=== PATIENT | female | born 1955 | race Caucasian/White ===

== ENCOUNTER 2019-03-06 12:25 | Inpatient (IN) ==
[2019-03-06 13:33] LABS: BASO# 0.01 X1000 (0.0-0.2); HEMATOCRIT 48.3 % (37.0-47.0); HEMOGLOBIN 15.5 g/dL (12.0-16.0); IMM GRAN# 0.09 X1000 (0.0-0.04); IMM GRAN% 0.3 % (0.0-0.5); LYMPH# 1.21 X1000 (1.2-3.4); LYMPH% 4.5 % (20.5-51.1); MCH 26.2 PG (27-31); MCHC 32.1 g/dL (33-37); MCV 81.6 FL (81-99); MONO# 1.94 X1000 (0.11-0.59); MONO% 7.2 % (1.7-9.3); MPV 11.3 FL (7.4-10.4); NEUT# 23.85 X1000 (1.4-6.5); PLT 291 X1000 (130-400); RBC 5.92 XMIL (4.2-5.4)
[2019-03-06] MEDS ORDERED: ZOFRAN IV ONE (14:05)
[2019-03-06] MEDS ORDERED: NS 1,000 ML IV ONE ×3 (14:05→20:42)
[2019-03-06 14:27] LABS: ALB/GLOB RATIO 1.1; ALBUMIN 4.3 g/dL (3.5-5.0); CALCIUM 10.4 mg/dL (8.8-10.2); CREATININE 1.2 mg/dL (0.5-0.9); POTASSIUM 4.1 mmol/L (3.5-5.1); TOTAL BILIRUBIN 0.85 mg/dL (0.20-1.00); TOTAL PROTEIN 8.2 g/dL (6.3-8.3)
--- NOTE | 2019-03-06 14:33 | PROVIDER DOCUMENTATION ---
HPI-Abdominal Pain/GI Problem - General Chief Complaint: Nausea/Vomiting Stated Complaint: VOMITING Time Seen by Provider: 03/06/19 13:23 Source: patient - History of Present Illness-ABD Nature of Presenting Problems: 63 yr old F, presenting with nausea, vomiting, epigastric abdominal pain that started Sunday. She attributed her initial stomach upset to some she had eaten, but Sunday morning began throwing up, and has not been able to keep anything down since then. She states her last bowel movement was Sunday; her abdominal pain is alternating crampy and sharp, epigastric, non-radiating. She reports subjective fevers and chills. The pt denies any recent abdominal procedures; has had her uterus and gallbladder removed several years ago. Abdominal Pain Onset Location: reports: epigastric Pain Radiation: reports: no radiation Quality of Pain: reports: sharp Severity in ED: reports: moderate Onset/Duration: reports: other (Sunday) Timing: reports: still present Activities at Onset: reports: none Exposure to sick contacts?: No Associated Symptoms: reports: nausea, vomiting Last BM: 2 days ago Dark Stools Present?: reports: none noticed # of Vomiting Episodes: 6 Emesis Description: reports: clear Similar Symptoms Previously?: No Review of Systems - Adult - REVIEW OF SYSTEMS - ADULT Constitutional: reports: see HPI, chills (subjective), fever (subjective) Eyes: reports: no symptoms reported Ears, Nose, Mouth & Throat: reports: no symptoms reported Cardiovascular: reports: no symptoms reported Respiratory: reports: no symptoms reported Gastrointestinal: reports: see HPI Genitourinary: reports: no symptoms reported Musculoskeletal: reports: no symptoms reported Integumentary: reports: no symptoms reported Neurological: reports: no symptoms reported Psychiatric: reports: no symptoms reported Endocrine: reports: no symptoms reported Past History - Adult - PAST MEDICAL HISTORY-ADULT Review of Records: reports: Nursing Assessment Review Cardiovascular: reports: HTN - PRIOR SURGERIES/PROCEDURES Surgical/Procedure History: reports: cholecystectomy, hysterectomy - FAMILY HISTORY Family History: reviewed, not pertinent - SOCIAL HISTORY Smoking: denies Living Situation: family Physical Exam-General - CONSTITUTIONAL General Appearance: alert, mild distress - EYES Eyes: PERRL/EOMI - HEAD, EARS, NOSE, MOUTH & THROAT HENMT: normocephalic/atraumatic, moist mucous membranes - RESPIRATORY Respiratory: chest non-tender, lungs clear, normal breath sounds - CARDIOVASCULAR Cardiovascular: regular rate, rhythm - GASTROINTESTINAL (ABDOMEN) Abdominal Exam: normal bowel sounds, soft, tenderness. negative: guarding - MUSCULOSKELETAL Extremity: no pedal edema, no calf tenderness - SKIN Integumentary: normal color, normal turgor, warm/dry - NEUROLOGIC Neurologic: no motor/sensory deficits - PSYCHIATRIC Psych/Mental Status: normal mood/affect, oriented x 3 Progress - PLAN OF CARE/RESULTS Progress/Plan/Lab Results: Vital Signs - 8 hr 03/06/19 13:10 Temperature 97.9 F Pulse Rate 72 Respiratory Rate 18 Blood Pressure 166/80 O2 Sat by Pulse Oximetry 99 Laboratory Results - last 24 hr 03/06/19 03/06/19 13:20 13:20 WBC 27.10 H RBC 5.92 H Hgb 15.5 Hct 48.3 H MCV 81.6 MCH 26.2 L MCHC 32.1 L RDW Std Deviation 15.0 H Plt Count 291 MPV 11.3 H Immature Gran % (Auto) 0.3 Neut % (Auto) 88.0 H Lymph % (Auto) 4.5 L [place]ois % (Auto) 7.2 Eos % (Auto) 0.0 Baso % (Auto) 0.0 Immature Gran # (Auto) 0.09 H Neut # (Auto) 23.85 H Lymph # (Auto) 1.21 [place]quois # (Auto) 1.94 H Eos # (Auto) 0.00 Baso # (Auto) 0.01 Sodium 130 L Potassium 4.1 Chloride 91 L Carbon Dioxide 25 Anion Gap 14 BUN 18 Creatinine 1.2 H Estimated GFR/1.73 m2 46 BUN/Creatinine Ratio 15 Glucose 127 H Calculated Osmolality 264 Calcium 10.4 H Total Bilirubin 0.85 AST 21 ALT 17 Alkaline Phosphatase 103 Total Protein 8.2 Albumin 4.3 Globulin 3.9 Albumin/Globulin Ratio 1.1 Lipase 47 Orders Category Date Time Status NPO Diet 03/06/19 13:[address] ABD/PELVIS W/IV CONT ONLY [CT] Stat Exams 03/06/19 14:04 Ordered CBC WITH DIFF [HEME] Stat Lab 03/06/19 13:20 Completed COMPREHENSIVE METABOLIC PANEL [CHEM] Stat Lab 03/06/19 13:20 Completed LIPASE [CHEM] Stat Lab 03/06/19 13:20 Completed URINALYSIS W/POSS RFLX CULT [URINALYSIS] Stat Lab 03/06/19 14:29 Uncollected 0.9% Sodium Chloride Inj [Ns] 1,000 ml Med 03/06/19 14:05 Active IV 999 mls/hr Ondansetron [Zofran] Med 03/06/19 14:05 Discontinued 8 mg IV NOW ONE Abd Pain/OB <20 weeks Stat Oth 03/06/19 13:14 Ordered Result Diagrams: 03/06/19 13:20 03/06/19 13:20 - REASSESSMENT Reassessment #1 Time Reassessed: 16:00 (CT Abdomen shows mild pancreatitis and duodenitis; case discussed with hospitalist; pt will be accepted for admission; pt made aware of plan) - CT/MRI 1 CT Study: Abdomen Impression: See EMR Report CT Results: pancreatitis, duodenitis - CONSULTS/PCP/HOSPITALIST Notification #1 *Consult/PCP/Hospitalist*: L[place] for Dr. Menendez Time Discussed: 16:15 Consult Disposition: Admit Departure - Departure Date of Disposition Decision: 03/06/19 Time of Disposition Decision: 16:14 DIAGNOSIS: Pancreatitis Qualifiers: Chronicity: acute Pancreatitis type: other Acute pancreatitis complication: unspecified Qualified Code(s): K85.80 - Other acute pancreatitis without necrosis or infection Disposition: ADMITTED INPATIENT 09 Certified Medical Emergency: Emergent Condition: Fair Referrals and Follow-Ups: Latoya Medina [Primary Care Provider] - - Critical Care Note This patient required my direct & personal management of CC.: No Attestation - Physician/ DUDLEY Attestation Patient care was provided by Advanced Practice Provider:: No The physician spent face to face time with patient:: Yes Advanced Practice Provider documentation review:: Supervising physician onsite and consulted in the evaluation and care of this patient. The physician did have a face to face encounter with the patient.
[2019-03-06] MEDS ORDERED: BENTYL IM ONE (15:00)
[2019-03-06 15:46] LABS: URINE SOURCE CLEAN CATCH
[2019-03-06 15:56] LABS: BILIRUBIN URINE NEGATIVE (NEGATIVE); BLOOD URINE SMALL (NEGATIVE); COLOR ORANGE; GLUCOSE URINE NEGATIVE (NEGATIVE); KETONE URINE 60 mg/dL (NEGATIVE); LEUKOCYTES URINE NEGATIVE (NEGATIVE); NITRITE URINE NEGATIVE (NEGATIVE); PROTEIN URINE 100 mg/dL (NEGATIVE); SP GRAVITY URINE 1.039; TURBIDITY URINE TURBID (CLEAR); UROBILINOGEN URINE NORMAL (NORMAL)
[2019-03-06 15:58] LABS: UR EPITHELIAL CELLS >10 /HPF (<10); URINE BACTERIA 3+ /HPF; URINE RBC <10 /HPF (<10); URINE WBC <10 /HPF (<10)
--- NOTE | 2019-03-06 16:08 | Diag Imaging Result Doc PS360 ---
EXAM: CT ABD/PELVIS W/IV CONT ONLY - 03/06/2019 HISTORY: abdominal pain, nausea, vomiting TECHNIQUE: CT abdomen/pelvis with intravenous contrast COMPARISON: None. FINDINGS: The visualized lung bases appear clear except for slight dependent atelectasis. There are no substantial abnormalities of the liver, spleen, or adrenal glands identified. The gallbladder surgically absent. There are atrophic changes of the pancreas. There are mild inflammatory changes at the pancreatic head. There are some retained fluid in the duodenum, duodenal wall does not appear grossly thickened. Findings suggest mild acute pancreatitis. There is no discrete necrosis or pseudocyst identified. There is no extraluminal gas collection to suggest perforated ulcer. The bilateral kidneys enhance homogeneously. There is no hydronephrosis. There is no evidence of bowel obstruction. The appendix is unremarkable. There is no substantial bowel wall thickening identified. There is no free air or abscess identified. IMPRESSION: Findings which are suggestive of relatively mild acute pancreatitis. There is some retained fluid in the duodenal, and secondary duodenitis cannot be excluded. There is no evidence of perforated ulcer. IMPRESSION: This exam was performed using automated exposure control, adjustment of mA or kV according to patient size, and/or use of iterative reconstruction technique. Electronically signed by Lavon Corona 03/06/2019 4:05 PM
[2019-03-06] MEDS: ZOFRAN IV PRN ×2 (18:29→23:58)
[2019-03-06] MEDS: MORPHINE IV PRN (18:55)
[2019-03-06] MEDS: ZOSYN 3.375 GM in NS 50 ML IV SCH (19:19)
[2019-03-06] MEDS: PROTONIX IV SCH (19:21)
[2019-03-06] MEDS: NS 1,000 ML IV SCH (19:22)
--- NOTE | 2019-03-06 20:10 | HISTORY AND PHYSICAL ---
PRIMARY CARE PHYSICIAN: Latoya Medina MD, in [place]. CHIEF COMPLAINT: Nausea, vomiting and epigastric abdominal pain, that began Sunday and progressively worsened. HISTORY OF PRESENTING ILLNESS: This is a 63-year-old female who presents to [facility] with complaints of nausea, vomiting and epigastric abdominal pain that began Sunday and has progressively worsened. States her last bowel movement was Sunday. Workup in the emergency room showed a white blood cell count of 27.10. Sodium was 130, creatinine was 1.2. Her amylase and lipase were both normal, but we did a CT of the abdomen and pelvis that showed an impression of findings suggestive of relatively mild acute pancreatitis; some retained fluid in the duodenum and secondary duodenitis could not be excluded. She will be admitted for further evaluation and treatment. PAST MEDICAL HISTORY: None. PAST SURGICAL HISTORY: Cholecystectomy and hysterectomy. FAMILY HISTORY: Reviewed and noncontributory. SOCIAL HISTORY: She currently lives with family denied any tobacco, alcohol or illicit drug use. ALLERGIES: No known drug allergies. HOME MEDICATIONS: She does not take any medications on a routine basis. LABORATORY DATA: Showed a white blood cell count of 27.10, hemoglobin 15.5, hematocrit 48.3, platelets 291,000. Sodium 130, potassium 4.1, chloride 91, CO2 is 25, BUN of 18, creatinine 1.2, glucose 127, amylase 95, lipase 47. Urinalysis was negative except for 3+ bacteria. DIAGNOSTIC DATA: CT of the abdomen and pelvis showed an impression of findings which are suggestive of relatively mild acute pancreatitis. Some retained fluid in the duodenum and secondary duodenitis could not be excluded. There is no evidence of a perforated ulcer. REVIEW OF SYSTEMS: She denied any fever, chills, blurred vision, dizziness, chest pain, coughing or shortness of breath. She has had epigastric abdominal pain, nausea and vomiting. Denied any constipation, diarrhea or burning or hurting with urination. PHYSICAL EXAMINATION: VITAL SIGNS: On arrival she had a temperature of 97.9 degrees, pulse 72, respirations 18, blood pressure 166/80, saturating 99% on room air. GENERAL: This is a 63-year-old female who is lying in the bed and answers questions appropriately. HEENT: Normocephalic, atraumatic. Normal ENT inspection. Oropharynx and nares are clear. Eyes: Pupils are equal, round and reactive to light and accommodation. Extraocular movements are intact. NECK: Normal inspection. Normal range of motion. LUNGS: Clear to auscultation bilaterally with equal lung expansion and chest wall movement. HEART: Regular rate and rhythm. No murmurs, rubs or gallops. ABDOMEN: Soft. There is some tenderness to the epigastric area to palpation. Bowel sounds are present x4 quadrants. MUSCULOSKELETAL: She had 5/5 strength x4 extremities. NEUROLOGICAL: The cranial nerves 2-12 appear grossly intact. ASSESSMENT: 1. Epigastric abdominal pain. 2. Nausea and vomiting. 3. Acute pancreatitis. 4. Leukocytosis. 5. Mild dehydration. PLAN: She will be admitted to the medical unit, held n.p.o. but I will let her have some ice chips just sparingly. She will be on telemetry. We will apply SCDs for DVT prophylaxis. Give her morphine 2 mg IV q.3 hours p.r.n., Zofran 4 mg IV q.4 hours p.r.n., normal saline at 125 mL/h. Recheck a CBC and BMP in the a.m. Further orders after seen by attending. Dictated by ASHLEY Abreu for Ran Sanchez MD cc: ASHLEY Abreu MD
[2019-03-06] MEDS ORDERED: NS 500 ML IV ONE (20:42)
--- NOTE | 2019-03-06 20:42 | HISTORY AND PHYSICAL ---
ADDENDUM: The patient seen and examined by me [id number]. All the laboratory, vital signs and images were reviewed. The patient presented to the emergency department with a chief complaint of abdominal pain, and she started actually having more pain and vomiting since yesterday at 5 a.m., and she has not been able to keep anything down since then. Her last bowel movement was normal and was 2 days ago on Sunday. As per the patient she also ate a food with a lot of condiments, especially pepper last Sunday and she was told not to eat that kind of food because her gallbladder has been removed and that can cause some damage, in the emergency department. They did a CT scan of the abdomen that showed a probably mild acute pancreatitis, some retained fluid in the duodenum and secondary duodenitis cannot be excluded, but the laboratory did not show any increase on her amylase or lipase. Her abdomen is actually benign. Some pain at the level of the periumbilical area, right flank and left upper quadrant. No signs of peritoneal irritation. The abdomen actually is protuberant, but as per the patient, it has been always that way. Laboratory showed also some hyponatremia with hypochloremia, elevated creatinine at 1.2. On my physical exam, she seems to be a little bit dehydrated. We will give her IV fluids. I will put her back on Protonix since she is taking some at home, and she has a history of GERD. I do believe this can be of some kind of viral infection and/or bacterial infection, but I do not believe she has pancreatitis. I will repeat, though, her lipase level tomorrow as well. For now, I will monitor. The problem is that her white blood cell count is really elevated at 27.1. Like I mentioned before, she had some chills and subjective fevers. The neutrophil count is 88%. DIAGNOSES: 1. Viral versus bacterial gastroenteritis. I will continue with IV fluids, and I will continue with antibiotics for now. Her white blood cell count is elevated at 27.1. We will monitor this closely. I will repeat the lab work in the morning. 2. CT scan that showed the possibility of duodenitis. We will continue to monitor. Her abdomen is not that tender, and she is not having any nausea at this moment. We will monitor. I will put this patient n.p.o. to give her some bowel rest for now. 3. Mild pancreatitis by CT scan. I do not think this patient has pancreatitis, but I will repeat the lipase and amylase for now. 4. Gastrointestinal reflux disease. Continue with PPIs. 5. This patient is also using some hormonal replacement with Estradiol. 6. Obesity with a body mass index of 33.7, aware. 7. Deep venous thrombosis prophylaxis with Lovenox. I agree with the rest of the nurse practitioner's assessment and plan, but I do not think she has pancreatitis. cc: Ran Sanchez MD
--- NOTE | 2019-03-06 21:26 | Diag Imaging Result Doc PS360 ---
CHEST-1 VIEW - 03/06/2019 INDICATION: sepsis protocol COMPARISON: None FINDINGS: The lungs are normally expanded and clear. Heart size and mediastinal contours are normal. No pneumothorax or pleural effusion. IMPRESSION: Negative exam. Electronically signed by Victor Hugo Waller 03/06/2019 9:23 PM
[2019-03-06 22:36] LABS: INR 1.15; PROTIME 14.9 Seconds (11.0-16.0)
[2019-03-06 22:37] LABS: PTT 35.1 Seconds (22.3-41.8)
[2019-03-06 23:02] LABS: ALB/GLOB RATIO 1.5; ALBUMIN 3.6 g/dL (3.5-5.0); CREATININE 1.1 mg/dL (0.5-0.9); POTASSIUM 4.1 mmol/L (3.5-5.1); TOTAL BILIRUBIN 0.88 mg/dL (0.20-1.00)
[2019-03-06 23:03] LABS: BASO# 0.01 X1000 (0.0-0.2); HEMATOCRIT 42.5 % (37.0-47.0); HEMOGLOBIN 13.6 g/dL (12.0-16.0); IMM GRAN# 0.07 X1000 (0.0-0.04); IMM GRAN% 0.3 % (0.0-0.5); LYMPH# 1.49 X1000 (1.2-3.4); LYMPH% 6.3 % (20.5-51.1); MCH 26.5 PG (27-31); MCV 82.8 FL (81-99); MONO# 2.09 X1000 (0.11-0.59); MONO% 8.8 % (1.7-9.3); MPV 11.2 FL (7.4-10.4); NEUT# 20.02 X1000 (1.4-6.5); NEUT% 84.6 % (42.2-75.2); PLT 235 X1000 (130-400); RBC 5.13 XMIL (4.2-5.4); RDW 14.9 % (11.5-14.5); WBC 23.68 X1000 (4.8-10.8)
[2019-03-06 23:15] LABS: LYMPHS 6 % (21-51); MONO 3 % (1-9); SEGS 91 % (42-75)
[2019-03-06 23:16] LABS: CALCIUM 8.7 mg/dL (8.8-10.2)
[2019-03-07] MEDS: ZOSYN 3.375 GM in NS 50 ML IV SCH ×4 (00:31→18:05)
[2019-03-07] MEDS: MORPHINE IV PRN ×3 (00:32→09:59)
[2019-03-07 03:49] LABS: BASO# 0.01 X1000 (0.0-0.2); EOS# 0.04 X1000 (0.0-0.7); EOS% 0.2 % (0.0-10.0); HEMATOCRIT 39.8 % (37.0-47.0); HEMOGLOBIN 12.9 g/dL (12.0-16.0); IMM GRAN# 0.06 X1000 (0.0-0.04); IMM GRAN% 0.3 % (0.0-0.5); LYMPH# 1.53 X1000 (1.2-3.4); LYMPH% 7.6 % (20.5-51.1); MCH 26.8 PG (27-31); MCHC 32.4 g/dL (33-37); MCV 82.7 FL (81-99); MONO# 1.39 X1000 (0.11-0.59); MONO% 6.9 % (1.7-9.3); MPV 11.1 FL (7.4-10.4); NEUT# 17.08 X1000 (1.4-6.5); PLT 224 X1000 (130-400); RBC 4.81 XMIL (4.2-5.4); RDW 14.9 % (11.5-14.5); WBC 20.11 X1000 (4.8-10.8)
[2019-03-07 04:03] LABS: AMYLASE 46 U/L (20-200); LIPASE 24 U/L (13-60)
[2019-03-07 04:06] LABS: CALCIUM 8.5 mg/dL (8.8-10.2); CREATININE 1.1 mg/dL (0.5-0.9); POTASSIUM 3.9 mmol/L (3.5-5.1)
[2019-03-07] MEDS: NS 1,000 ML IV SCH ×3 (05:24→22:44)
[2019-03-07] MEDS: ZOFRAN IV PRN ×2 (05:30→09:59)
[2019-03-07] MEDS: LOVENOX SUBQ SCH (09:59)
[2019-03-07] MEDS: ESTRACE PO SCH (09:59)
[2019-03-07] MEDS ORDERED: GLYCERIN ADULT PR ONE (12:29)
--- NOTE | 2019-03-07 15:21 | PROGRESS NOTE ---
DATE: 03/07/2019 SUBJECTIVE: Today, Ms. Ospina refers to be doing a little better. She says she did sip water with her hormone pills and that did stay down, but otherwise she just remained nauseated. She has not had any vomiting. She says she has not had any bowel movement either. Of note, Ms. Ospina got admitted yesterday because of epigastric pain, nausea and vomiting. A CT scan of the abdomen and pelvis did show mild acute pancreatitis. There was also some retained fluid in the duodenum and secondary duodenitis cannot be excluded. OBJECTIVE: Vital Signs: Blood pressure is 130/60, pulse of 67, respirations 17, temperature is 98.7 degrees. General: Ms. Ospina is a 63-year-old female. She is in bed, no distress. HEENT: Mucosa is pink and moist. Anicteric. Acyanotic. Neck: Supple. Chest: Clear to auscultation. No crepitations. No rhonchi. Cardiovascular: Regular rate and rhythm. There are no murmurs, no rubs, no gallops. GI: Abdomen is soft, distended, but nontender. Bowel sounds are present. There is mild tenderness in the epigastrium but no rebound, no guarding. Extremities: No pedal edema. [employer] PROFESSOR: Patient is awake, alert, and oriented. No focal neurological deficit. LABORATORY DATA: WBC is 20.11. Chemistry is also reviewed. Sodium is 130, creatinine is 1.1. IMAGING STUDIES: So far have all been reviewed. MEDICATIONS: Have also been reviewed and no changes. ASSESSMENT: 1. Epigastric pain, most likely due to underlying duodenitis. 2. Recurrent dyspeptic symptoms, most likely due to underlying gastroesophageal reflux disease/duodenitis. However, I think peptic ulcer disease also needs to be ruled out since this keeps reoccurring. The patient is status post cholecystectomy. 3. Leukocytosis, most likely due to the underlying duodenitis. 4. Acute pancreatitis on CT with unremarkable amylase and lipase. 5. Obesity with BMI of 31.7. 6. Constipation. We will give the patient a suppository to help with bowel movement. In genera, I think Ms. Ospina is doing well. She has been treated for a very long time for GERD, and she has had these recurrent upper GI symptoms for a while. We will get GI to evaluate her to rule out any possible underlying peptic ulcer that needs to be treated differently. Ms. Ospina will continue on IV fluids, antibiotics, and we will start her on clear liquids today and wait for GI further recommendations. cc: Amilcar Resendiz MD MTDD
[2019-03-07] MEDS: PROTONIX IV SCH (18:05)
[2019-03-07] MEDS: SODIUM CHLORIDE 0.9% INJ SCH (18:05)
--- NOTE | 2019-03-07 23:23 | GASTROENTEROLOGY CONSULTATION ---
DATE: 03/07/2019 REASON FOR CONSULTATION: Pancreatitis, rule out duodenitis. HISTORY OF PRESENT ILLNESS: Ms. Adriana Ospina is a 63-year-old woman with past medical history of obesity, colonic polyps, GERD, status post cholecystectomy, who presents with 5 days of severe stabbing epigastric pain radiating to the left upper quadrant. The patient reports that Sunday evening her pain started suddenly and intermittent. She denies any aggravating factors or alleviating factors. Two days later she developed nonbloody, nonbilious emesis, chills and cold intolerance. No change in bowel habits, rectal bleeding, hematemesis, melena, abnormal weight loss. No shortness of breath or chest pain. She denies a prior history of pancreatitis. No new medications, alcohol, drug use or smoking. No family history of GI malignancies or pancreatitis. She was previously followed by another GI from outside facility who has since relocated. Her last EGD was in 2011, which was unremarkable for ulcers. She had a colonoscopy in 2014 with colonic polyps. She reports being overdue for surveillance colonoscopy. REVIEW OF SYSTEMS: As per HPI, otherwise 12-point review of systems is negative. PAST MEDICAL HISTORY: As per HPI. PAST SURGICAL HISTORY: Cholecystectomy and hysterectomy. FAMILY HISTORY: No family history of GI malignancies or pancreatitis. SOCIAL HISTORY: No smoking, alcohol or drug use. MEDICATIONS: She takes estradiol and Nexium 40 mg daily. Rarely she takes ibuprofen for headaches. ALLERGIES: No known drug allergies. PHYSICAL EXAMINATION: Vital Signs: Temperature 98.7 degrees, heart rate 67, respiratory rate 17, blood pressure 130/60, O2 saturation 97% on room air. General: Patient is awake, alert, oriented in no acute distress. HEENT: Sclerae anicteric. Moist mucous membranes. Extraocular movements intact. Neck: Supple. No JVD or lymphadenopathy. Cardiac: Regular rate and rhythm. No murmurs, rubs, or gallops. Lungs: Clear to auscultation bilaterally. Abdomen: Obese, soft, nontender, nondistended. Normoactive bowel sounds. No rebound or guarding. Extremities: No clubbing, cyanosis, or edema. Neurologic: Nonfocal. LABORATORY DATA: White count of 20 from 23.6 yesterday, hemoglobin of 12.9, platelets of 224,000. INR yesterday was 1.15. Sodium 130 from 133, potassium 3.9, chloride of 96, bicarb 23, BUN of 16, creatinine of 1.1, glucose of 113, calcium 8.5, total bilirubin 0.8, AST of 14, ALT 13, alkaline phosphatase 84. Troponin negative. Total protein of 6.0, albumin 3.6, amylase is 46, lipase of 24. UA shows protein, ketones, and small amount of blood. IMAGING: A CT of the abdomen and pelvis with IV contrast only shows some atrophic changes of the pancreas with mild inflammatory changes of the pancreatic head. There was some retained food in the duodenum. Duodenal wall does not appear grossly thickened. Findings suggest mild pancreatitis. There is no discrete necrosis or pseudocyst identified. There is no extraluminal gas collection to suggest perforated ulcer. Chest x-ray negative. ASSESSMENT AND PLAN: Ms. Adriana Ospina is a 63-year-old woman with past medical history of gastrointestinal reflux disease, status post cholecystectomy, colonic polyps, obesity who presents with acute mild pancreatitis, found to have leukocytosis, hyponatremia and starvation ketosis on labs. She is currently on empiric antibiotics for concern of infection. Blood cultures x2 are pending. Urine culture is negative. She is also on pantoprazole 40 mg IV daily and IV fluids, pain control and Lovenox the etiology of her pancreatitis is unclear. No evidence of biliary dilation on CT. She does not drink any alcohol. I recommend checking a lipid panel in the morning and IgG4. Her symptoms are consistent with pancreatitis as her presentation and imaging are consistent with pancreatitis; however, her lipase and amylase are within normal limits. She is not anemic. She denies any hematemesis, melena, or abnormal weight loss. She does not take NSAIDs regularly. She is on a PPI. Her pain radiates to the left upper quadrant, which would be unusual for duodenitis or peptic ulcer disease in that area. Her pain is essentially gone, and her nausea has improved significantly. She has not required pain medicine or Zofran since early this morning. She has been able to tolerate some Jell-O this afternoon. # Acute pancreatitis # Leukocytosis # Hyponatremia # Starvation ketosis # Nausea # History of colonic polyps # Abnormal GI wall imaging RECOMMENDATIONS: I would continue PPI IV for now as well as antiemetics, IV fluids and pain control. I would advance her diet to low-fat diet as tolerated. Once she is able to take p.o. medications, I would transition her Zofran to p.o. as well as her PPI. At this point I do not think that she needs inpatient endoscopy unless her nausea and vomiting does not improve. She is overdue for surveillance colonoscopy, which we can address as an outpatient. Her CT findings of fluid in the duodenum is nonspecific, and there is no signs of wall thickening in that area to suggest duodenitis. We will follow with you. Continue to trend her lytes and CBC. Her elevated white count is likely acute phase reactant in the setting of pancreatitis. I would consider stopping antibiotics if her blood cultures are negative tomorrow. Thank you for this consult. Dr. Kang will follow over the weekend. Please call with any questions or concerns. [facility]IS HOSPITALElie
[2019-03-08] MEDS: ZOSYN 3.375 GM in NS 50 ML IV SCH ×2 (00:26→05:58)
[2019-03-08] MEDS: NS 1,000 ML IV SCH ×2 (05:58→16:42)
[2019-03-08 07:10] LABS: HEMATOCRIT 41.4 % (37.0-47.0); HEMOGLOBIN 12.9 g/dL (12.0-16.0); MCH 26.4 PG (27-31); MCHC 31.2 g/dL (33-37); MCV 84.7 FL (81-99); MPV 11.6 FL (7.4-10.4); RBC 4.89 XMIL (4.2-5.4); WBC 12.13 X1000 (4.8-10.8)
[2019-03-08 07:19] LABS: ALBUMIN 3.6 g/dL (3.5-5.0); C REACTIVE PROT QUANT 161.36 mg/L (0.00-5.00); CALCIUM 8.3 mg/dL (8.8-10.2); CREATININE 1.1 mg/dL (0.5-0.9); PHOSPHORUS 2.4 mg/dL (2.7-4.5)
[2019-03-08] MEDS: ESTRACE PO SCH (10:01)
[2019-03-08] MEDS: LOVENOX SUBQ SCH (10:01)
[2019-03-08] MEDS: MIRALAX PO SCH (16:41)
[2019-03-08] MEDS: PROTONIX IV SCH (17:58)
[2019-03-08] MEDS: SODIUM CHLORIDE 0.9% INJ SCH (17:59)
--- NOTE | 2019-03-08 19:51 | PROGRESS NOTE ---
DATE: 03/08/2019 SUBJECTIVE: This morning Ms. Ospina refers to be doing a whole lot better. She has been able to tolerate her clear liquids. OBJECTIVE: Vital signs: Blood pressure is 136/58, pulse 70, respirations 18, temperature is 98.5 degrees. General: Ms. Ospina is a 63-year-old, female. She is in bed in no distress. HEENT: Mucosa is pink and moist. Anicteric. Acyanotic. Neck: Supple. Chest: Good air entry bilaterally. No crepitations. No rhonchi. Cardiovascular: Regular rate and rhythm. No murmurs, no rubs, no gallops. GI: Abdomen is soft. It is not tender. It is distended. No rebound. No guarding. Bowel sounds are present. No hepatosplenomegaly. Extremities: No pedal edema. Distal pulses present. LOOM TUNER: Patient is awake, alert, oriented. There is no focal deficit. Input/Output: Urine output is documented to be 1200. She has a currently positive balance at 2467. LABORATORY DATA: WBCs down to 12.13, hemoglobin 12.6, platelet count 237. Chemistry is also reviewed. Creatinine is 1.1. Rest of chemistry is unremarkable. Patient's C-reactive protein is 161. ASSESSMENT: 1. Abdominal pain on presentation secondary to duodenitis and pancreatitis. This is improved. 2. History of recurrent dyspeptic symptoms. The patient is on a proton pump inhibitor. 3. Leukocytosis, most likely reactive to the underlying duodenitis and pancreatitis. 4. Pancreatitis on CT scan with unremarkable lipase and amylase levels. The patient has been evaluated by gastroenterology. 5. Obesity with BMI of 31.7. 6. Constipation, improving. 7. Acute kidney injury, improving. PLAN: So in general, I think Ms. Ospina is doing a lot better. Her abdominal pain has improved, and she is tolerating clear liquids. We are going to advance this to a full liquid diet. Her blood cultures have come back at 48 hours negative. The urine culture is also negative, so we will discontinue her IV antibiotics. Ms. Ospina's C-reactive protein was remarkably elevated. She has been evaluated by GI. They think that her pain was more related to acute pancreatitis than a duodenitis. They have recommended to check her serum triglycerides as well as an IGg4, which has all been done. DISPOSITION: 1. If Ms. Ospina tolerates her full liquid diet, we are going to advance it to GI soft, and if her C-reactive protein is trending down, I think she will be fine to be discharged pending final recommendations from Gastroenterology. 2. We are going to order an ultrasound of the right upper quadrant to also rule out any gallstones, despite that fact that her CT scan did not make mention of this. cc: Amilcar Resendiz MD
--- NOTE | 2019-03-08 20:34 | Diag Imaging Result Doc PS360 ---
EXAM: US GB < RUQ (LIMITED) HISTORY: acute pancreatitis. R/o gallstones TECHNIQUE: Right upper quadrant ultrasound COMPARISON: Recent CT FINDINGS: The pancreas is predominantly obscured. The gallbladder is not present. No ascites in the right upper quadrant. No focal hepatic abnormality. The common bile duct measures 5 mm. Normal right kidney. No hydronephrosis. IMPRESSION: Cholecystectomy Electronically signed by Davie Becerra 03/08/2019 8:32 PM
[2019-03-08] MEDS ORDERED: DULCOLAX PR SCH (21:00)
[2019-03-08] MEDS: CARAFATE LIQUID PO SCH (21:42)
--- NOTE | 2019-03-08 23:08 | GASTROENTEROLOGY PROGRESS NOTE ---
DATE: 03/08/2019 ATTENDING PHYSICIAN: Amilcar Resendiz MD PRIMARY CARE PHYSICIAN: Latoya Medina MD, at [place]. SUBJECTIVE: Patient resting in bed. She is feeling better. Her abdominal pain is improved. She denies any vomiting today. She has not had a bowel movement today. She denies any fevers, rigors or chills. OBJECTIVE: Vital signs: Temperature 98.6 degrees, pulse of 60, respiratory rate 18, blood pressure 132/58, saturating 98% room air. Body weight of 196 pounds 8 ounces. BMI of 31.7 kg/m2. Generally the patient is moderately built, well nourished, lying in the bed in no acute distress. HEENT: No pallor, no icterus. Pupils equal and reactive to light. Neck supple. Abdomen is protuberant. Mild distention noted. No rebound or guarding. Extremities: No cyanosis, clubbing or edema. Neurologic-wallis, she is alert, awake and oriented x3. LABORATORY DATA: Hemoglobin and hematocrit is 12.9 and 41.4, white count of 12.13, platelet count of 237,000. MCV of 84.7. Sodium 139, potassium 4, chloride 100, bicarbonate 24, anion gap 13, BUN of 15, creatinine 1.2, glucose of 87, calcium is 8.3, phosphorus 2.4. CRP is 161.36. Albumin of 3.6. Amylase was 46, lipase 24. Blood culture x2 negative at 48 hours from 03/06/2019. Urine culture showing no pathogenic growth. IMPRESSION: 1. Leukocytosis, which is improving. 2. Abnormal CT scan showing possibility of inflammation in the head of the pancreas and/or duodenitis, which could be secondary to peptic ulcer disease as the patient had a history of taking ibuprofen for a few months for her chronic headaches. Her amylase and lipase have been normal since admission, making pancreatitis less likely. 3. Status post cholecystectomy. 4. History of colon polyps in 2014. Needs surveillance colonoscopy as an outpatient. 5. Obesity. 6. Reflux disease. 7. No history of alcohol. Has a history of taking ibuprofen regularly for a few months for chronic headaches. RECOMMENDATIONS: 1. We will follow up the IgG subtypes. 2. We will check the lipid panel. 3. We will start her on bowel regimen with Dulcolax and MiraLAX, which will help her abdominal bloating and she is on pain control, IV morphine. DVT prophylaxis with Lovenox. 4. IV Zofran as needed for nausea and vomiting, which is improved. I will also start her on Carafate 1 g 6 hours, which will help with bilious emesis and peptic ulcer disease. I will increase her Protonix to twice daily, as I suspect that peptic ulcer disease is a likely possibility in light of her history of using ibuprofen for a few months for chronic headaches. She will be on full liquid diet and advance as tolerated. If she continues to have symptoms, then we may have to do esophagogastroduodenoscopy on Sunday. The above plan was discussed with the patient and family at bedside. All questions answered. Please call us with any further questions. cc: MD Amilcar Gunn MD MTDD
[2019-03-09] MEDS: NS 1,000 ML IV SCH ×4 (01:54→21:49)
[2019-03-09] MEDS: CARAFATE LIQUID PO SCH ×4 (01:54→21:48)
[2019-03-09] MEDS: PROTONIX IV SCH ×2 (05:25→16:29)
[2019-03-09 07:25] LABS: HEMATOCRIT 35.2 % (37.0-47.0); HEMOGLOBIN 10.8 g/dL (12.0-16.0); MCH 26.2 PG (27-31); MCHC 30.7 g/dL (33-37); MCV 85.4 FL (81-99); MPV 11.1 FL (7.4-10.4); RBC 4.12 XMIL (4.2-5.4); RDW 14.8 % (11.5-14.5); WBC 7.02 X1000 (4.8-10.8)
[2019-03-09 07:31] LABS: C REACTIVE PROT QUANT 73.51 mg/L (0.00-5.00); CHOLESTEROL 154 mg/dL (0-200); HDL 49 mg/dL (45-65); LDL 81 mg/dL; TRIGLYCERIDES 119 mg/dL (35-135); VLDL 24 mg/dL
[2019-03-09 07:35] LABS: ALBUMIN 3.1 g/dL (3.5-5.0); CALCIUM 8.2 mg/dL (8.8-10.2); PHOSPHORUS 2.3 mg/dL (2.7-4.5); POTASSIUM 4.1 mmol/L (3.5-5.1)
[2019-03-09] MEDS ORDERED: NORCO-5 PO PRN (08:45)
[2019-03-09] MEDS ORDERED: MORPHINE IV PRN (08:45)
[2019-03-09] MEDS: ESTRACE PO SCH (09:29)
[2019-03-09] MEDS: MIRALAX PO SCH (09:29)
[2019-03-09] MEDS: LOVENOX SUBQ SCH (09:29)
[2019-03-09] MEDS: SODIUM CHLORIDE 0.9% INJ SCH (16:29)
--- NOTE | 2019-03-09 17:38 | PROGRESS NOTE ---
DATE: 03/09/2019 INTERVAL HISTORY: Patient with no further nausea or vomiting. Essentially no abdominal pain. Constipation remains improved. Has been tolerating full liquids well. No acute events overnight. No new complaints. REVIEW OF SYSTEMS: Twelve point review of systems negative except as per interval history. LABS: WBC 7.0, hemoglobin 10.8, hematocrit 35.2, platelets 210,000. Sodium 140, potassium 4.1, bicarb 27, BUN 10, creatinine 1.0, glucose 86. Triglycerides 119. VITAL SIGNS: Temperature maximum 98.5 degrees, pulse 58, respirations 18, blood pressure 135/65, O2 saturation 96% on room air. PHYSICAL EXAMINATION: General: No acute distress. Vitals: As above. HEENT: Normocephalic, atraumatic. Moist mucous membranes. Neck: No cervical adenopathy. Cardiovascular: Regular rate and rhythm. No murmurs noted. Pulmonary: Clear to auscultation bilaterally. No wheezing, rales, or rhonchi. Abdomen: Soft, essentially nontender. Bowel sounds positive. Extremities: Peripheral pulses intact. No clubbing or cyanosis. Neurologic: Cranial nerves grossly intact. No focal deficits identified. Psychiatric: Normal mood and affect. Awake, alert, and oriented x3. Skin: No new rashes or lesions identified. ASSESSMENT AND PLAN: 1. Abdominal pain, likely pancreatitis. Etiology uncertain. Nothing by imaging or labs to suggest obstruction. The patient has had her gallbladder out previously. Lipase was actually negative, but did appear to have pancreatitis on CT. Triglycerides not elevated. Regardless of the cause she does appear to be improved. No further nausea or vomiting, essentially no abdominal pain at this point. Has tolerated full liquids well. We will go ahead and bump her up to a soft diet and monitor. If the patient tolerates a full diet without return of symptoms then can likely be discharged tomorrow. 2. Gastroesophageal reflux disease. Continue proton pump inhibitor. 3. Leukocytosis likely reactive to pancreatitis. 4. Obesity. The patient has been counseled on diet and exercise. 5. Constipation, resolved. 6. Acute kidney injury, resolved.
--- NOTE | 2019-03-09 18:51 | GASTROENTEROLOGY PROGRESS NOTE ---
DATE: 03/09/2019 SUBJECTIVE: Patient resting in bed. Her abdominal pain is improving. She has a better appetite today. She denies any nausea or vomiting today. She had a bowel movement today which was brown. She denies any fevers, rigors, chills. OBJECTIVE: Vital Signs: Temperature 97.8 degrees, pulse rate of 58, respiratory rate 19, blood pressure 120/84, saturating 96% on room air. Body weight of 196 pounds 8 ounces. BMI 31.7 kg. General: Moderately nourished, lying in bed, in no acute distress. HEENT: Mild pallor. No icterus. Pupils equal, reactive to light. Neck: Supple. Abdomen: Protuberant, soft, obese, nontender. Mild discomfort in the epigastrium. No rebound or guarding. Extremities: No cyanosis, clubbing. Neurologic: She is alert, awake, oriented x3. LABS: Hemoglobin and hematocrit are 10.8 and 35.2, white count of 7.02, platelet count of 210,000. Sodium 140, potassium 4.1, chloride 104, bicarb 27, anion gap 9, BUN of 10, creatinine 1, glucose of 86. Calcium is 8.2, phosphorus 2.3, and CRP 73.51, albumin of 3.1. Her triglyceride level is 119. Blood cultures negative at 48 hours, and urine culture is showing no pathogenic growth. IMPRESSION AND PLAN: 1. Abdominal pain. Question of pancreatitis versus peptic ulcer disease. We will schedule patient for EGD tomorrow. The risks, benefits, indications, and alternatives to the procedure discussed with the patient and all questions answered. 2. Gastroesophageal reflux disease. Patient continues on PPIs for now. 3. Mild anemia. We will watch for now. 4. Leukocytosis, which is now resolved. 5. Obesity. Patient counseled to lose weight. 6. Constipation. She is on laxatives and is improved. 7. Acute kidney injury, improved. 8. The patient has history of colon polyps. She is overdue for colonoscopy. We will schedule for outpatient colonoscopy after discharge. 9. Abnormal CT scan which suggested either inflammation at head of the pancreas or just in duodenal or duodenitis. This could be secondary to NSAID abuse. The patient has been using ibuprofen for few months for chronic arthritis and chronic headaches. PLAN: 1. The patient is counseled to avoid using NSAIDs. 2. DVT prophylaxis with Lovenox. 3. Pain control with morphine. The above plan was discussed with the patient, and all questions were answered. Please call with any further questions. cc: MD Latoya Gunn
[2019-03-10] MEDS: CARAFATE LIQUID PO SCH ×3 (02:10→13:44)
[2019-03-10] MEDS: PROTONIX IV SCH (05:06)
[2019-03-10] MEDS: SODIUM CHLORIDE 0.9% INJ SCH (05:06)
[2019-03-10] MEDS: NS 1,000 ML IV SCH (05:06)
[2019-03-10] MEDS ORDERED: XYLOCAINE-MPF 2% ONE (08:15)
[2019-03-10] MEDS ORDERED: DIPRIVAN 1% ONE (08:16)
--- NOTE | 2019-03-10 08:42 | ENDOSCOPY OPERATIVE NOTE ---
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 PROCEDURE PERFORMED: EGD w/ biopsy MEDICATIONS: Per Anesthesia ESTIMATED BLOOD LOSS: None CONSENT: The patient understands the risks and benefits of the procedure and understands that these r isks include, but are not limited to: sedation, allergic reaction, infection, perforation and/or bleeding. Alternative means of evaluation and treatment include, among others: physical exam, x-rays, and/or surgical intervention. The patient elects to proceed with this endoscopic procedure. DESCRIPTION OF PROCEDURE: During pre-op preparation period all mechanical and medical equipment was c hecked for proper function. Hand hygiene and appropriate measures for infection prevention was taken. After the risks, benefits and alternatives of the procedure were thoroughly explained, Informed consent was verified, confirmed and timeout was successfully executed by the treatment team. The patient was anesthetized with topical anesthesia and the [id number]-[id number] ([id number]) endoscope was introduced through the mouth and advanced to the second portion of the duoden um. Retroflexion was performed in the stomach and revealed no abnormalities. The gastroscope was then slowly withdraw n and removed. The patient's toleration of the procedure was good. ESOPHAGUS: The mucosa of the esophagus appeared normal. Z line at 44 cms. STOMACH: Gastritis (inflammation) was found on the greater curvature of the gastric body. Multiple gastric polyps noted. Biopsied Bile noted in the stomach. DUODENUM: The duodenal mucosa showed no abnormalities in the 2nd part of the duodenum. Mild duodena l inflammation was found in the duodenal bulb. ADVERSE EVENTS: There were no complications. IMPRESSIONS: 1. The mucosa of the esophagus appeared normal 2. Z line at 44 cms 3. Gastritis (inflammation) was found on the greater curvature of the gastric body 4. Multiple gastric polyps noted. Biopsied Bile noted in the stomach 5. The duodenal mucosa showed no abnormalities in the 2nd part of the duodenum 6. Duodenal inflammation was found in the duodenal bulb RECOMMENDATIONS: 1. Await biopsy results 2. Follow-up biopsy results in 2 weeks 3. GERD lifestyle changes Avoid NSAIDs Continue Miralax 17g every day. RTC 2 weeks and will need outpatient colonoscopy. REPEAT EXAM: Ed Kang MD eSigned: Ed Kang MD 03/10/2019 8:41 AM CC: CPT CODES: 55025 Upper gastrointestinal endoscopy including esophagus, stomach, and either the du odenum and/or jejunum as appropriate; with biopsy, single or multiple ICD CODES: The ICD and CPT codes recommended by this software are interpretations from the data that the [facility] staff has captured with the software. The verification of the translation of this report to the ICD and CPT co bruno and modifiers is the sole responsibility of the health care institution and practicing physician where this report was generated. [employer] will not be held responsible for the validity of the ICD and CPT codes i ncluded on this report. [employer] assumes no liability for data contained or not contained herein. CPT is a registered tra demark of the [employer]. PATIENT NAME: Adriana Ospina MR#: [id number]
[2019-03-10] MEDS: LOVENOX SUBQ SCH (12:43)
[2019-03-10 13:14] VITALS: BP 136/55
[2019-03-10] MEDS: ESTRACE PO SCH (13:45)
[2019-03-10] MEDS: MIRALAX PO SCH (13:45)
--- NOTE | 2019-03-12 16:36 | DISCHARGE SUMMARY ---
ADMISSION DATE: 03/06/2019 DISCHARGE DATE: 03/10/2019 CONSULTS: GI, Dr. Kang. PERTINENT STUDIES: CT abdomen and pelvis suggestive of mild acute pancreatitis, retained fluid in the duodenum with secondary duodenitis not entirely excluded. No evidence of perforated ulcer. Chest x-ray unremarkable. Abdominal ultrasound with surgically absent gallbladder. No ascites. No liver abnormalities and normal bile duct at 5 mm. Normal right kidney, no hydronephrosis. Pancreas not clearly seen. EGD with gastritis in the greater curvature of the gastric body, multiple gastric polyps which were biopsied, bile in the stomach. Duodenal inflammation in the bulb, but normal duodenal mucosa past that. Lipase 47. Initial white count 23.6, discharge white count 7. Urine and blood cultures negative. DISCHARGE DIAGNOSES: 1. Likely pancreatitis. 2. Gastritis. 3. Gastroesophageal reflux disease. 4. Obesity. 5. Constipation. 6. Likely chronic kidney disease 3. 7. Heavy nonsteroidal antiinflammatory drug use. HOSPITAL COURSE: The patient came into the ER complaining of nausea, vomiting, and epigastric abdominal pain for the last few days. Also complained of constipation. The patient had epigastric tenderness with normal blood counts. No clear signs or symptoms of bleeding. She had marked leukocytosis. CT abdomen was suggestive of pancreatitis, although lipase was within normal limits. Initial evaluation was otherwise pretty unremarkable. She was given supportive care with fluids and antiemetics. GI evaluated the patient because the mild duodenal inflammation was also seen on CT, which was favored to be reactive. They thought it was a good idea to go ahead and do an EGD to make sure there was not significant duodenitis or duodenal ulcer as a cause of her pain and discomfort, especially given her normal lipase. The EGD was performed. It did show some mild gastritis and mild duodenal inflammation in the bulb, but no major pathology. There were some polyps which were biopsied. Biopsy results were pending at the time of discharge. The patient was also placed on PPI given history of heavy NSAID use, and after EGD showing gastritis and duodenitis this was continued. The patient improved fairly rapidly with conservative management. All her symptoms resolved within 2 to 3 days. Her diet was advanced which she tolerated well. There was a question of acute kidney injury as her initial creatinine was slightly elevated at 1.2 with a GFR of 46. This did improve slightly but only to 1.0, which was thought to likely be her baseline, which would make her chronic kidney disease 3. Her sodium was slightly low, but that resolved with fluids. With resolution of her symptoms and advancement of her diet and no major pathology identified by EGD, the patient was discharged home to follow up with PCP. Triglycerides were evaluated and normal. The patient denied alcohol use, but cause of her pancreatitis remained somewhat uncertain. Her significant leukocytosis on admission was thought to be related to her pancreatitis. No evidence of infection was found. DISCHARGE VITALS: Temperature 98.4 degrees, pulse 61, respirations 20, blood pressure 136/55, O2 saturation 100% on room air. DISCHARGE DIET: Regular. DISCHARGE MEDICATIONS: Estradiol as previously prescribed, Nexium 40 mg p.o. daily, MiraLAX daily. FOLLOWUP AND PLAN: The patient discharging home on PPI to follow up with PCP and GI. The patient counseled on avoiding heavy NSAID use. Greater than 30 minutes was spent in arranging discharge and counseling patient.
== END 2019-03-10 16:09 | disposition home or self-care (01) | DRG 439 ==
LOC: ED 12:25 → SUATTDRO 17:38 → EDIPHOLD 17:38 → 4N 19:39
PROVIDERS: ATTEND Internal Medicine